=== PATIENT | male | born 1995 | race Caucasian/White ===

== ENCOUNTER 2017-01-12 02:12 | Emergency (ER) | payer BC ==
[~2017-01-12 02:12] MED LIST: ADVIL100 MG; FLOVENT HFA12 G IH; NEXIUM40 MG PO; NO MEDS CURRENTLY; NORCO 5/325 TAB1 TAB PO; OMNICEF; SINGULAIR5 MG; TYLENOL #31 TA1 PO; ZITHROMAX; ZOFRAN ODT4 MG/UDTAB PO; ZOFRAN ODT8 MG/TAB PO; ZOFRAN4 MG PO; ZYRTEC
[2017-01-12] MEDS ORDERED: NORCO 5/3251 TAB PO (03:09)
[2017-01-12] MEDS ORDERED: CYCLOBENZAPRINE10 M1 PO (03:09)
== END 2017-01-12 03:25 ==
LOC: EDMED 02:12
DX: S39.012A Strain of muscle, fascia and tendon of lower back, initial encounter (principal); X58.XXXA Exposure to other specified factors, initial encounter